=== PATIENT | male | born 1985 | race Caucasian/White ===

== ENCOUNTER 2025-05-23 10:14 | Emergency (ER) | payer MEDICAID ==
[~2025-05-23] VITALS: Ht 180.3 cm; Wt 75.0 kg
[2025-05-23 10:15] VITALS: BP 127/83; PULSE 89; RESP 16; O2SAT 100
--- NOTE | 2025-05-23 10:32 | Physician Documentation ---
History of Present Illness ~ Chief Complaint: Medical Clearance Stated Complaint: MED CLEARANCE Time Seen by MD: 10:21 [facility] Patient is requesting medical clearance secondary to chronic methamphetamine use. He is attempting to attend [facility]. Says he used meth 3-4 days ago. Day of Onset: May 23, 2025 Medication Reconciliation Allergies: Coded Allergies: shellfish derived (Verified Allergy, Unknown, 05/23/25) Review of Systems All Other Systems at this time: Reviewed and Negative ROS As stated above in the HPI, otherwise all systems are reviewed and negative. Physical Exam Vital Signs: Temperature: 98.5, Source: Oral, Heart Rate: 89, Respiratory Rate: 16, BP: 127/83, Pulse Oximetry: 100, Weight: 75.000 Physical Exam General: Alert, no apparent distress. HEENT: PERRL, EOMI, no injection, moist mucous membranes. Neck: Full range of motion. Respiratory: Lungs clear, no respiratory distress. Chest: No accessory muscle use. Cardiovascular: Regular rate and rhythm, no murmurs. Gastrointestinal: Soft, nontender, nondistended. Bowels sounds present. Extremities: Normal range of motion, no deformity. Neurologic: Oriented x4. Psychiatric: Normal mood and affect. Skin: Normal color, warm and dry. No edema, no ecchymosis. Progress Results/Orders Results/Orders Vital Signs 05/23/25 10:15 Temp 98.5 Pulse 89 Resp 16 B/P (MAP) 127/83 Pulse Ox 100 Medical Decision Making Additional information obtaine: family Findings And does not present under the influence of methamphetamine he is in no acute distress. I am going to medically clear him for [facility] Differential Dx:Considerations: Include: Intoxication-Alcohol, Intoxication- Other drug, Personality disorder, Substance abuse disorder, Acute delirium, Closed head injury, Cervical spine injury, Skull fracture, Fracture(s), Guevara shayna, Contusion, Foreign body, Hematoma, Laceration, Alcohol withdrawl syndrom, Encephalopathy, Hepatitis, Medically stable, Other Departure Disposition: 01 HOME / SELF CARE / HOMELESS Impression: Primary Impression: General medical exam Condition: Stable Discharge Instructions: Methamphetamines Use Disorder Additional Instructions: Patient is medically cleared for rehabilitation at [facility] Referrals: NO PRIMARY CARE PROVIDER (PCP) Signature Scribe Signature: ad Attestation: Scribed for Julius Davila Customer Management Specialist by Julius Keenan NP . 05/23/25 10:32 JULIUS DAVILA NP May 23, 2025 10:32
[2025-05-23 11:30] VITALS: TEMP 98.5
== END 2025-05-23 11:34 | disposition home or self-care (01) ==
LOC: ER 10:14
DX: Z00.00 Encounter for general adult medical examination without abnormal findings (principal); F15.90 Other stimulant use, unspecified, uncomplicated; Z91.013 Allergy to seafood
CPT/HCPCS: 99282

== ENCOUNTER 2025-06-01 00:35 | Emergency (ER) | payer MEDICAID ==
[~2025-06-01] VITALS: Ht 177.8 cm; Wt 75.0 kg
[2025-06-01 00:40] VITALS: BP 127/81; PULSE 110; RESP 16; O2SAT 100
--- NOTE | 2025-06-01 03:12 | Physician Documentation ---
History of Present Illness ~ Chief Complaint: Rash Stated Complaint: LEG RASH Time Seen by MD: 03:11 HPI Patient presents to the emergency room for evaluation of rash to his right lower extremity. He believes that has an infections has been going on for a month. No fevers. Medication Reconciliation Allergies: Coded Allergies: shellfish derived (Verified Allergy, Unknown, 06/01/25) Review of Systems ROS All review of systems negative except as per HPI Physical Exam Vital Signs: Temperature: 97.6, Source: Temporal, Heart Rate: 110, Respiratory Rate: 16, BP: 127/81, Pulse Oximetry: 100, Weight: 75.000 Physical Exam General: Patient is awake, alert, oriented x4 in no acute distress Head: Normocephalic and atraumatic. Eyes: Conjunctival normal. EOMI. PERRL. ENT: Mucous membranes moist. Neck: Supple, trachea is midline. Chest: Clear to auscultation bilaterally without rales, rhonchi, or wheezes. There is no accessory muscle use or retractions. Cardiac: RRR without murmurs, gallops, or rubs. Abd: Soft, nondistended, nontender, with normoactive bowel sounds. No guarding, rebound, or rigidity. Extremities: Some abrasions associated with some purulent drainage in his right anterior kelley with associated erythema. No fluctuance Progress Results/Orders Results/Orders Vital Signs 06/01/25 00:40 Temp 97.6 Pulse 110 Resp 16 B/P (MAP) 127/81 Pulse Ox 100 Medical Decision Making Additional information obtaine: old records Findings Patient presents to the emergency room for evaluation as per HPI. Differentials include but are not limited to contact dermatitis, cellulitis, abscess, necrotizing fasciitis. Physical exam consistent with superficial infection we will begin antibiotics. ER precautions discussed. Given reassuring physical exam and vitals I do not feel patient requires emergent labs or imaging. Differential Dx:Considerations: Include: Anthrax (cutaneous) Departure Disposition: HOME / SELF CARE / HOMELESS Impression: Primary Impression: Cellulitis Condition: Stable Discharge Instructions: Cellulitis, Adult Referrals: NO PRIMARY CARE PROVIDER (PCP) Prescriptions Sulfamethoxazole/Trimethoprim (Bactrim Ds Tablet) 800 Mg-160 Mg Tablet 1 TAB PO Q12H for 10 Days, #20 TAB Prov: GWYN KNIGHT MD 06/01/25 Signature Scribe Signature: No scribe Attestation: The note accurately reflects work and decisions made by me.Gwyn Knight MD 06/01/25 03:17 GWYN KNIGHT MD Jun 01, 2025 03:12
[2025-06-01] MEDS ORDERED: SULF1TAB49 PO (03:17)
[2025-06-01 03:20] VITALS: TEMP 97.6
[2025-06-01] MEDS: sulfamethoxazole/trimethoprim DS (800/160mg) tablet PO ONE (03:23)
[2025-06-01] MEDS: ondansetron 4mg rapidly disintigrating tab PO ONE (03:23)
== END 2025-06-01 03:26 | disposition home or self-care (01) ==
LOC: ER 00:35
DX: S70.311A Abrasion, right thigh, initial encounter (principal); L03.115 Cellulitis of right lower limb; Z91.013 Allergy to seafood; X58.XXXA Exposure to other specified factors, initial encounter; Y93.89 Activity, other specified; Y92.89 Other specified places as the place of occurrence of the external cause; Y99.8 Other external cause status
CPT/HCPCS: 99283